=== PATIENT | female | born 1965 | race Caucasian/White ===

== ENCOUNTER 2017-05-19 14:04 | Emergency (ER) | payer MEDICAID ==
[2017-05-19 17:24] VITALS: BP 120/75
== END 2017-05-19 17:24 | disposition home or self-care (01) ==
LOC: ED 14:04
DX: N39.0 Urinary tract infection, site not specified (principal); E11.9 Type 2 diabetes mellitus without complications; Z79.4 Long term (current) use of insulin; Z79.84 Long term (current) use of oral hypoglycemic drugs; Z79.899 Other long term (current) drug therapy